=== PATIENT | female | born 2000 | race Caucasian/White ===

== ENCOUNTER 2019-10-11 21:05 | Emergency (ER) | payer MEDICAID ==
[~2019-10-11] VITALS: Ht 152.4 cm; Wt 73.0 kg
[2019-10-11] MEDS ORDERED: DIPHENHYDRAMINE 25 MG CAPSULE PO ONE (21:30)
[2019-10-11] MEDS ORDERED: KETOROLAC 30 MG/1 ML IM ONE (21:30)
[2019-10-11] MEDS ORDERED: ONDANSETRON ODT 4 MG PO ONE (21:30)
[2019-10-11] MEDS ORDERED: KETOROLAC 30 MG/1 ML ONE (21:37)
[2019-10-11] MEDS ORDERED: DIPHENHYDRAMINE 25 MG CAPSULE ONE (21:37)
[2019-10-11] MEDS ORDERED: ONDANSETRON ODT 4 MG ONE (21:37)
[2019-10-11 22:55] VITALS: BP 122/78
--- NOTE | 2019-10-11 22:57 | NUR ---
DISCHARGE TEACHING REVIEWED. SHOWS UNDERSTANDING.
== END 2019-10-11 23:02 | disposition home or self-care (01) ==
LOC: ED 22:46
DX: M62.838 Other muscle spasm (principal); M54.2 Cervicalgia; R07.89 Other chest pain; R51 Headache
CPT/HCPCS: 71045; 96372; 99283; J1885; Q0162; Q0163

== ENCOUNTER 2020-01-22 13:34 | Emergency (ER) | payer MEDICAID ==
[~2020-01-22] VITALS: Ht 152.4 cm; Wt 74.2 kg
--- NOTE | 2020-01-22 14:05 | NUR ---
Yury dickey in [facility] - 01/22/20 at 1405 by MORENO MAIL MESSENGER: ALYCIA COLLECTED AND SENT FROM [employer]
--- NOTE | 2020-01-22 14:28 | NUR ---
LABORER LANDSCAPE: PT TO ROOM FROM LOBBY
[2020-01-22 15:49] VITALS: BP 109/60
== END 2020-01-22 15:59 | disposition home or self-care (01) ==
LOC: ED 15:50
DX: J06.9 Acute upper respiratory infection, unspecified (principal); R07.89 Other chest pain; J02.8 Acute pharyngitis due to other specified organisms; B97.89 Other viral agents as the cause of diseases classified elsewhere; J45.909 Unspecified asthma, uncomplicated
CPT/HCPCS: 71045; 87081; 87147; 87880; 93005; 99285